=== PATIENT | male | born 1960 | race Caucasian/White ===

== ENCOUNTER 2017-12-26 17:05 | Emergency (ER) | payer OTHER ==
[2017-12-26 17:13] VITALS: TEMP 97.5
[2017-12-26] MEDS ORDERED: TDAP ADULT 0.5 ML INJ (BOOSTRIX) IM ONE (17:36)
--- NOTE | 2017-12-26 17:36 | EDPHY ---
H & P Time Seen by Provider: 12/26/17 17:14 HPI/ROS: CHIEF COMPLAINT: Facial and head injury HISTORY OF PRESENT ILLNESS: 57-year-old male presents to the emergency department by private vehicle with facial and head injury. The patient was at work and a large industrial drill kicked back and hit him in the right eye. He sustained lacerations to his right eye extending into the right eyelid. He denies a headache. The incident happened just prior to arrival. He denies neck or back pain. Denies chest pain or difficulty breathing. Denies visual changes. Specifically denies double or blurry vision. He is unsure of his last tetanus shot. He denies neck pain. Denies paresthesias in his upper or lower extremities. Unsure of his last tetanus shot REVIEW OF SYSTEMS: Constitutional: No fever, no chills. Eyes: No double or blurry vision. ENT: No sore throat. Respiratory: No cough, no shortness of breath. Cardiac: No chest pain. Gastrointestinal: No abdominal pain, vomiting or diarrhea. Genitourinary: No dysuria. Musculoskeletal: No neck or back pain. Skin: Facial laceration. No rashes. Neurological: No headache. Past Medical/Surgical History: Negative Social History: Smoking Status: Never smoked Physical Exam: General Appearance: Alert, no distress. Mentating normally and answering questions appropriately. His is at bedside. Eyes: Pupils equal and round. Extraocular motions are all intact. Complex laceration involving the right upper eyelid that is a full-thickness laceration extending through the tarsal plates. The laceration extends up into the right eyebrow with extension into the frontal bone or possible frontal sinus. ENT: Mouth: Mucous membranes moist. No dental injury or malocclusion. Respiratory: No wheezing, rhonchi, or rales, lungs are clear to auscultation. Cardiovascular: Regular rate and rhythm. Gastrointestinal: Abdomen is soft and nontender, no masses, no rebound or guarding, bowel sounds normal. Neurological: Alert and oriented x 3, cranial nerves II through XII grossly intact Skin: Warm and dry, no rashes. Musculoskeletal: Nontender to palpate along the cervical, thoracic or lumbar spine. Neck is supple. Extremities: Full range of motion and no peripheral edema. Psychiatric: Patient is oriented X 3, there is no agitation. Constitutional: Initial Vital Signs Temperature (C) 36.4 C 12/26/17 17:05 Heart Rate 60 12/26/17 17:05 Respiratory Rate 16 12/26/17 17:05 Blood Pressure 153/102 H 12/26/17 17:05 O2 Sat (%) 96 12/26/17 17:05 O2 Delivery Mode Room Air Allergies/Adverse Reactions: Penicillins Allergy (Unknown, Verified 12/26/17 17:10) CHILD Home Medications: Medication Instructions Recorded NK [No Known Home Meds] 12/26/17 Medical Decision Making - Diagnostics Imaging: Discussed imaging studies w/ call or contact centre manager Radiologist ED Course/Re-evaluation: The patient was also seen examined by Dr. Risa Wild, secondary supervising physician. Patient's tetanus shot was updated. The patient was kept NPO. CT imaging of the brain has been ordered and is pending. CT imaging of the brain is normal. There is no intracranial bleeding or pneumocephalus. Patient is a complex right tripod fracture as well as complex fracture of the right frontal bone extending into the right frontal sinus without extension into the brain. Patient has extensive laceration that extends full thickness through the right upper eyelid through the tarsal plate. I initially spoke with our on-call laboratory development technician and he felt that the patient required ocular plastic repair. I did also speak with 1 of our plastic surgeon , Dr. Leonidas rodriguez, who felt that this would be better served by ocular plastic surgeon as well. I spoke with Dr. George, who is trauma surgeon at [facility], who will have the patient go through the emergency department and laceration will be repaired by Ophthalmology. I also spoke with the on-call laboratory development technician [facility], Dr. Prasad, who will see this patient when he arrived in the emergency department. Emtala paperwork filled out. Differential Diagnosis: Head injury including but not limited to concussion, skull fracture, facial fractures, intraparenchymal contusion, subarachnoid, subdural and epidural hematoma. - Data Points Medications Given: Discontinued Medications Diphtheria/Tetanus/Acell Pertussis (Boostrix) 0.5 ml IM .ONCE ONE Stop: 12/26/17 17:37 Last Admin: 12/26/17 18:16 Dose: 0.5 ml Cefazolin Sodium/Dextrose (Ancef 1 Gm (Premix)) 50 mls @ 200 mls/hr IV EDNOW ONE PRN Reason: Protocol Stop: 12/26/17 17:54 Last Admin: 12/26/17 18:20 Dose: Not Given Clindamycin Phosphate/Dextrose (Cleocin 600 Mg (Premix)) 50 mls @ 100 mls/hr IV EDNOW ONE PRN Reason: Protocol Stop: 12/26/17 18:32 Last Admin: 12/26/17 18:15 Dose: 50 mls Departure - Departure Disposition: Acute Care Hospital [facility] Clinical Impression: Complex full-thickness R eyelid lac Facial bones, open fracture Qualifiers: Encounter type: initial encounter Facial bone/location: unspecified facial bone Qualified Code(s): S02.92XB - Unspecified fracture of facial bones, initial encounter for open fracture Condition: Good Instructions: Laceration (ED) Additional Instructions: Go directly to [facility] Emergency Department. Tell them that we spoke with the on-call laboratory development technician, Dr. Prasad, and they will see you in the emergency department. This do not eat or drink anything. You were given 600 mg of clindamycin IV. You were also given a tetanus shot IV.
[2017-12-26] MEDS ORDERED: CLINDAMYCIN 600 MG/DEXTROSE 50 ML IV ONE (18:03)
[2017-12-26 18:19] VITALS: BP 168/106; PULSE 62; RESP 18; O2SAT 94
== END 2017-12-26 19:49 | disposition short-term general hospital (02) ==
DX: S02.92XB Unspecified fracture of facial bones, initial encounter for open fracture (principal); S01.111A Laceration without foreign body of right eyelid and periocular area, initial encounter; Z23 Encounter for immunization; W22.8XXA Striking against or struck by other objects, initial encounter; Y92.69 Other specified industrial and construction area as the place of occurrence of the external cause; Y99.0 Civilian activity done for income or pay; Y93.89 Activity, other specified
CPT/HCPCS: 96365; J0690